=== PATIENT | female | born 1965 | race African-American/Black ===

== ENCOUNTER 2018-03-09 17:50 | Emergency (ER) | payer SELFPAY ==
[2018-03-09 18:19] VITALS: BP 127/80; PULSE 76; TEMP 97.9; BMI 29.9
--- NOTE | 2018-03-09 19:42 | PDOC ---
History of Present Illness - General Chief Complaint: Cold Symptoms Stated Complaint: Cold Symptoms Time Seen by Provider: 03/09/18 19:15 History Source: Patient Exam Limitations: Clinical Condition - History of Present Illness Initial Comments: 03/09/18 19:39 Patient with no significant past medication present with complaint of three-day history of runny nose, nasal congestion, dry cough and sinus pain. Patient denies fever, chills or sore throat. Patient denies any other symptoms. Timing/Duration: other (3 days) Past History - Past Medical History Allergies/Adverse Reactions: Allergies Allergy/AdvReac Type Severity Reaction Status Date / Time morphine Allergy Unknown Verified 03/09/18 19:08 Home Medications: Ambulatory Orders Benzonatate [Tessalon Pearls -] 100 mg PO TID PRN #21 capsule 03/09/18 Ipratropium [place] 2 spray NS BID PRN #1 spray 03/09/18 Loratadine 10 mg PO DAILY #10 capsule 03/09/18 COPD: No - Immunization History Immunization Up to Date: Yes - Suicide/Smoking/Psychosocial Hx Smoking History: Never smoked Hx Alcohol Use: No Drug/Substance Use Hx: No Review of Systems - Review of Systems Able to Perform ROS?: Yes Is the patient limited Pashto proficient: No Constitutional: No: Chills, Fever, Malaise, Weakness HEENTM: Yes: Symptoms Reported, See HPI, Nose Congestion. No: Eye Pain, Blurred Vision, Tearing, Recent change in vision, Double Vision, Cataracts, Ear Pain, Ocular Prothesis, Ear Discharge, Nose Pain, Tinnitus, Nose Bleeding, Hearing Loss, Throat Pain, Throat Swelling, Mouth Pain, Dental Problems, Difficulty Swallowing, Mouth Swelling, Other Respiratory: Yes: Symptoms reported, See HPI, Cough. No: Orthopnea, Shortness of Breath, SOB with Exertion, SOB at Rest, Stridor, Wheezing, Productive cough, Hemoptysis, Other Cardiac (ROS): No: Symptoms Reported, See HPI, Chest Pain, Edema, Irregular Heart Rate, Lightheadedness, Palpitations, Syncope, Chest Tightness, Other ABD/GI: No: Nausea, Vomiting All Other Systems: Reviewed and Negative *Physical Exam - Vital Signs Last Vital Signs Temp Pulse Resp BP Pulse Ox 97.9 F 76 16 127/80 98 03/09/18 18:16 03/09/18 18:16 03/09/18 18:16 03/09/18 18:16 03/09/18 18:16 - Physical Exam Comments: 03/09/18 19:40 GENERAL: Well developed, well nourished. Awake and alert. No acute distress. HEENT: Normocephalic, atraumatic. PERRLA, EOMI. No conjunctival pallor. Sclera are non-icteric. Moist mucous membranes. Oropharynx is clear. NECK: Supple. Full ROM. CARDIOVASCULAR: Regular rate and rhythm. No murmurs, rubs, or gallops. Distal pulses are 2+ and symmetric. PULMONARY: No evidence of respiratory distress. Lungs clear to auscultation bilaterally. No wheezing, rales or rhonchi. ABDOMINAL: Soft. Non-tender. Non-distended. No rebound or guarding. No organomegaly. Normoactive bowel sounds. MUSCULOSKELETAL Normal range of motion at all joints. EXTREMITIES: No cyanosis. No clubbing. No edema. No calf tenderness. SKIN: Warm and dry. Normal capillary refill. No rashes. No jaundice. NEUROLOGICAL: Alert, awake, appropriate. Gait is normal without ataxia. PSYCHIATRIC: Cooperative. Good eye contact. Appropriate mood General Appearance: Yes: Nourished, Appropriately Dressed. No: Apparent Distress Moderate Sedation - Procedure Monitoring Vital Signs: Procedure Monitoring Vital Signs Temperature 97.9 F 03/09/18 18:16 Pulse Rate 76 03/09/18 18:16 Respiratory Rate 16 03/09/18 18:16 Blood Pressure 127/80 03/09/18 18:16 O2 Sat by Pulse Oximetry (%) 98 03/09/18 18:16 Medical Decision Making - Medical Decision Making 03/09/18 19:41 Patient with no significant past medical history present with complaint of three -day history of URI symptoms and cough. Clinical exam unremarkable with lungs clear to auscultation bilateral and normal heart exam. Symptoms likely viral URI. Patient is stable for discharge on Tessalon Perles for cough, Atrovent nasal spray for nasal congestion and antihistamine with PCP follow-up. *DC/Admit/Observation/Transfer Diagnosis at time of Disposition: Cough URI (upper respiratory infection) Qualifiers: URI type: unspecified viral URI Qualified Code(s): J06.9 - Acute upper respiratory infection, unspecified Sinusitis Qualifiers: Sinusitis location: maxillary Chronicity: acute Recurrence: non-recurrent Qualified Code(s): J01.00 - Acute maxillary sinusitis, unspecified - Discharge Dispostion Disposition: HOME Condition at time of disposition: Stable Decision to Admit order: No - Prescriptions Prescriptions: Benzonatate [Tessalon Pearls -] 100 mg PO TID PRN #21 capsule PRN Reason: Cough Ipratropium [place] 2 spray NS BID PRN #1 spray PRN Reason: nasal congestion Loratadine 10 mg PO DAILY #10 capsule - Referrals Referrals: Josh Sher MD [Staff Physician] - - Patient Instructions Printed Discharge Instructions: DI for Viral Upper Respiratory Infection -- Adult Additional Instructions: Medications as prescribed. Increase fluid intake. Follow-up referred ENT doctor if symptoms persist more than 5 days. - Post Discharge Activity
== END 2018-03-09 19:53 | disposition home or self-care (01) ==
LOC: JERFT 17:50
DX: J01.00 Acute maxillary sinusitis, unspecified (principal); J06.9 Acute upper respiratory infection, unspecified
CPT/HCPCS: 99281-25

== ENCOUNTER 2023-02-06 20:31 | Emergency (ER) | payer OTHER ==
[2023-02-06 20:35] VITALS: TEMP 99.1; BMI 28.3
[2023-02-06] MEDS ORDERED: IBUPROFEN 600 MG TABLET (FP) PO ONE ×2 (21:30→21:34)
[2023-02-06 22:35] VITALS: BP 108/90; PULSE 82; RESP 19
== END 2023-02-06 22:35 | disposition home or self-care (01) ==
LOC: JER 20:31
DX: R07.9 Chest pain, unspecified (principal); R06.02 Shortness of breath; R05.9 Cough, unspecified; M06.9 Rheumatoid arthritis, unspecified; Z20.822 Contact with and (suspected) exposure to COVID-19
CPT/HCPCS: 0241U-QW; 71046-TC-FY; 73110-TC-LT-FY; 73130-TC-LT-FY; 93005; 93010; 99285-25